=== PATIENT | female | born 1985 ===

== ENCOUNTER 2017-09-28 01:34 | Emergency (ER) | payer MEDICAID ==
--- NOTE | 2017-09-28 01:59 | ED PDOC ---
Arrival/HPI - General Time Seen by Provider: 09/28/17 01:37 Historian: EMS - History of Present Illness Narrative History of Present Illness (Text): 09/28/17 01:56 Zoraida Gandhi is a 32 year old female who presents to the Emergency department brought in for alcohol intoxication tonight. When questioned if she was drinking alcohol tonight, patient said "yes" and went back to sleep. Limited HPI and ROS secondary to patient's alcohol intoxication. Symptom Onset: Gradual Symptom Course: Unchanged Activities at Onset: Light Context: Home Past Medical History - Provider Review Nursing Documentation Reviewed: Yes Family/Social History - Physician Review Nursing Documentation Reviewed: Yes Family/Social History: Unknown Family HX Allergies/Home Meds Allergies/Adverse Reactions: Allergies No Known Allergies Allergy (Verified 09/28/17 02:09) Home Medications: Home Meds Medication Instructions Recorded Confirmed Unobtainable 09/28/17 09/28/17 Review of Systems - Review of Systems Systems not reviewed;Unavailable: Intoxicated Physical Exam Vital Signs Reviewed: Yes Vital Signs Temp Pulse Resp BP Pulse Ox 09/28/17 04:59 70 12 96 09/28/17 01:45 98.1 F 71 18 103/63 97 Temperature: Afebrile Blood Pressure: Normal Pulse: Regular Respiratory Rate: Normal Appearance: Positive for: Comfortable Pain Distress: None Mental Status: Positive for: other (Drowsy but arousable) Finger Stick Blood Glucose: 139 - Systems Exam Head: Present: Atraumatic, Normocephalic Pupils: Present: PERRL Extroacular Muscles: Present: EOMI Conjunctiva: Present: Normal Mouth: Present: Moist Mucous Membranes Neck: Present: Normal Range of Motion Respiratory/Chest: Present: Clear to Auscultation, Good Air Exchange. No: Respiratory Distress, Accessory Muscle Use Cardiovascular: Present: Regular Rate and Rhythm, Normal S1, S2. No: Murmurs Abdomen: No: Tenderness, Distention, Peritoneal Signs Back: Present: Normal Inspection Upper Extremity: Present: Normal Inspection. No: Cyanosis, Edema Lower Extremity: Present: Normal Inspection. No: Edema Neurological: Present: GCS=15, CN II-XII Intact, Speech Normal Skin: Present: Warm, Dry, Normal Color. No: Rashes Psychiatric: Present: Other (Drowsy but arousable) Medical Decision Making ED Course and Treatment: 09/28/17 01:56 Impression: 32 year old female brought in for alcohol intoxication. Plan: -- Labs, alcohol level -- Reassess and disposition Progress Notes: 09/28/17 06:10 Patient awake alert sober with steady gait in ER. - Lab Interpretations Lab Results: 09/28/17 02:30 08 02:30 Lab Results 09/28/17 02:30: Sodium 143, Potassium 4.0, Chloride 108 H, Carbon Dioxide 21, Anion Gap 18, BUN 10, Creatinine 0.6 L, Est GFR ( Amer) > 60, Est GFR ( Non-Af Amer) > 60, Random Glucose 132 H, Calcium 8.5 09/28/17 02:30: WBC 8.3, RBC 4.25, Hgb 12.9, Hct 38.3, MCV 90.1, MCH 30.4, MCHC 33.7, RDW 12.9, Plt Count 240, MPV 9.4 09/28/17 02:30: Alcohol, Quantitative 202 H - Scribe Statement The provider has reviewed the documentation as recorded by the Scribchato Shrestha All medical record entries made by the Scribe were at my direction and personally dictated by me. I have reviewed the chart and agree that the record accurately reflects my personal performance of the history, physical exam, medical decision making, and the department course for this patient. I have also personally directed, reviewed, and agree with the discharge instructions and disposition. Disposition/Present on Arrival - Present on Arrival Any Indicators Present on Arrival: No - Disposition Have Diagnosis and Disposition been Completed?: Yes Diagnosis: Alcohol intoxication Disposition: HOME/ ROUTINE Disposition Time: 06:09 Patient Plan: Discharge Patient Problems: Current Active Problems Problem Status Onset Alcohol intoxication Acute Condition: GOOD Discharge Instructions (ExitCare): Alcohol Abuse and Alcoholism (DC) Referrals: Jorge Luis Conde MD [Primary Care Provider] - Follow up with primary Alcoholics Anonymous [Outside] - Follow up with primary
[2017-09-28 02:09] VITALS: BMI 24.9
[2017-09-28 02:45] LABS: HEMOGLOBIN 12.9 g/dL (12.0-16.0); MEAN CELL VOLUME 90.1 fl (80.0-105.0); MEAN CORPUSCULAR HEMOGLOBIN 30.4 pg (25.0-35.0); MEAN CORPUSCULAR HGB CONC 33.7 g/dl (31.0-37.0); MEAN PLATELET VOLUME 9.4 fl (7.0-11.0); RBC 4.25 10^6/uL (3.5-6.1); RED CELL DISTRIBUTION WIDTH 12.9 % (11.5-14.5); WHITE BLOOD COUNT 8.3 10^3/ul (4.5-11.0)
[2017-09-28 02:52] LABS: BLOOD UREA NITROGEN 10 mg/dL (7-21); CALCIUM 8.5 mg/dL (8.4-10.5); GFR AFRICAN-AMERICAN > 60; GFR NON-AFRICAN AMERICAN > 60
[2017-09-28 05:00] VITALS: PULSE 70
[2017-09-28 07:16] VITALS: BP 112/60; RESP 18; TEMP 98; O2SAT 100
== END 2017-09-28 06:21 | disposition home or self-care (01) ==
LOC: ED 01:34
DX: F10.129 Alcohol abuse with intoxication, unspecified (principal); Y90.7 Blood alcohol level of 200-239 mg/100 ml